=== PATIENT | female | born 1945 | race Caucasian/White ===

== ENCOUNTER 2021-10-12 08:57 | Inpatient (IN) ==
[2021-10-12 10:07] LABS: Basophils % 0.3 %; Eosinophils % 0.3 %; Hematocrit 31.1 % (35.3-44.9); Hemoglobin 10.6 g/dL (11.5-15.4); Immature Granulocytes % 0.4 % (0-4); Lymphocytes % 8.6 %; Mean Corpuscular HGB Conc 34.1 g/dL (31.6-35.5); Mean Corpuscular Hemoglobin 34.4 pg (28.0-33.3); Mean Platelet Volume 11.5 fL (9.4-12.4); Monocytes # 0.7 K/mcL (0.0-1.3); Monocytes % 5.6 %; Neutrophils # 9.9 K/mcL (1.6-8.9); Platelet Count 195 K/mcL (140-400); Red Blood Count 3.08 M/mcL (3.82-4.97); Red Cell Distribution Width 12.9 % (11.5-14.5); Segmented Neutrophils % 84.8 %; White Blood Count 11.7 K/mcL (4.3-11.1)
[2021-10-12 10:21] LABS: Alanine Aminotransferase 11 Units/L (7-52); Albumin 3.5 g/dL (3.5-5.7); Albumin/Globulin Ratio 1.2 (1.1-2.2); Alkaline Phosphatase 116 Units/L (34-104); Aspartate Amino Transferase 23 Units/L (13-39); BUN/Creatinine Ratio 17 (6-26); Blood Urea Nitrogen 10 mg/dL (8-23); Calcium 9.5 mg/dL (8.6-10.3); Carbon Dioxide 28 mEq/L (23-29); Chloride 99 mEq/L (98-107); Glucose 133 mg/dL (70-105); Osmolality,Calculated 285 (280-300); Potassium 3.6 mEq/L (3.5-5.1); Sodium 137 mEq/L (136-145); Total Protein 6.5 g/dL (6.4-8.9); eGFR For African Americans > 60 (> 60); eGFR For Non-African Americans > 60 (> 60)
[2021-10-12 10:29] LABS: Thyroid Stimulating Hormone 5.914 mcIU/mL (0.340-5.600)
[2021-10-12 10:30] LABS: Troponin I < 0.03 ng/mL (< 0.04)
[2021-10-12] MEDS ORDERED: *HR* Metoprolol 5 MG/5 ML VIAL IVP STA ×2 (11:30→16:08)
[2021-10-12] MEDS ORDERED: 0.9 % Sodium Chloride 500 ML IVC ONE (11:39)
[2021-10-12 12:31] LABS: INR 2.1; Prothrombin Time 22.8 Seconds (9.4-12.1)
[2021-10-12] MEDS ORDERED: Metoprolol XL (24 HR) Succ 50 MG TAB.ER.24H PO STA ×2 (16:10→22:52)
[2021-10-12 17:26] LABS: RBC,Pleural Fluid 1265000 RBC/mcL
[2021-10-12 17:32] LABS: Total Protein,Pleural Fluid 3.7 g/dL
[2021-10-12 17:33] LABS: Lactate Dehydrogenase 144 Units/L (140-271)
[2021-10-12] MEDS ORDERED: Mag Hydrox/Al Hydrox/Simeth 30 ML UDC PO PRN (17:56)
[2021-10-12] MEDS ORDERED: Ondansetron 4 MG/2 ML VIAL IVP PRN ×3 (17:56→22:52)
[2021-10-12] MEDS ORDERED: Acetaminophen 325 MG TABLET PO PRN (17:56)
[2021-10-12] MEDS ORDERED: Naloxone 0.4 MG/ML INJ IVP PRN ×2 (17:56→22:52)
[2021-10-12] MEDS ORDERED: Melatonin 3 MG TABLET PO PRN ×2 (17:56→22:52)
[2021-10-12 18:05] LABS: Appearance of Pleural Fl Bloody (Clear)
[2021-10-12] MEDS ORDERED: DilTIAZem 50 MG/50 ML IV.SOLN IVC SCH (18:15)
[2021-10-12] MEDS ORDERED: HUM PROTHROMBIN CPLX IVPB ONE (18:40)
[2021-10-12] MEDS ORDERED: WATER FOR INJ IVPB ONE (18:40)
[2021-10-12] MEDS ORDERED: [UNRECOGNIZED DRUG - OTHER] IVPB ONE (18:40)
[2021-10-12] MEDS ORDERED: *HR* Propofol 200 MG/20 ML VIAL IVP ONE (18:54)
[2021-10-12] MEDS ORDERED: Lidocaine -MPF 4% 5 ML AMPUL ONE (18:54)
[2021-10-12] MEDS ORDERED: Lidocaine -MPF 2% 5 ML VIAL ONE (18:54)
[2021-10-12] MEDS ORDERED: *HR* Rocuronium Bromide 50 MG/5 ML VIAL ONE (18:54)
[2021-10-12] MEDS ORDERED: Ondansetron 4 MG/2 ML VIAL ONE (18:54)
[2021-10-12] MEDS ORDERED: *HR* Succinylcholine 200 MG/10 ML VIAL IVP ONE (18:54)
[2021-10-12] MEDS ORDERED: *HR* FentaNYL (PF) 100 MCG/2 ML VIAL ONE (19:00)
[2021-10-12] MEDS ORDERED: Albumin Human 5% 12.5 GM/250 ML IV.SOLN ONE ×2 (19:04→21:32)
[2021-10-12 19:13] LABS: Basophils % 0.1 %; Eosinophils % 0.1 %; Hematocrit 32.1 % (35.3-44.9); Hemoglobin 11.2 g/dL (11.5-15.4); Immature Granulocytes % 0.5 % (0-4); Lymphocytes # 1.1 K/mcL (0.6-4.6); Lymphocytes % 10.2 %; Mean Corpuscular HGB Conc 34.9 g/dL (31.6-35.5); Mean Corpuscular Hemoglobin 35.4 pg (28.0-33.3); Mean Corpuscular Volume 101.6 fL (83.0-100.0); Mean Platelet Volume 11.3 fL (9.4-12.4); Monocytes # 0.7 K/mcL (0.0-1.3); Monocytes % 6.5 %; Neutrophils # 9.2 K/mcL (1.6-8.9); Platelet Count 230 K/mcL (140-400); Red Blood Count 3.16 M/mcL (3.82-4.97); Red Cell Distribution Width 13.2 % (11.5-14.5); Segmented Neutrophils % 82.6 %; White Blood Count 11.1 K/mcL (4.3-11.1)
[2021-10-12] MEDS ORDERED: *HR* HYDROmorphone PF 0.5 MG/0.5 ML SYRINGE IVP PRN (19:33)
[2021-10-12] MEDS ORDERED: *HR* FentaNYL (PF) 100 MCG/2 ML VIAL IVP PRN (19:33)
[2021-10-12] MEDS ORDERED: CeFAZolin Syr 2,000MG/20 ML 2,000 MG/20 ML SYRINGE IVPB ONE (19:34)
[2021-10-12] MEDS ORDERED: Lidocaine 1% 20 ML MDV ONE (19:47)
[2021-10-12] MEDS ORDERED: Metoprolol XL (24 HR) Succ 50 MG TAB.ER.24H PO SCH (21:00)
[2021-10-12] MEDS ORDERED: Metoprolol XL (24 HR) Succ 25 MG TAB.ER.24H PO SCH (21:00)
[2021-10-12] MEDS ORDERED: Albumin Human 5% 12.5 GM/250 ML IV.SOLN IVPB ONE (21:34)
[2021-10-12] MEDS ORDERED: Sugammadex Sodium 200 MG/2 ML VIAL IV ONE (21:41)
[2021-10-12] MEDS ORDERED: 0.9 % Sodium Chloride 1,000 ML IVC SCH (22:52)
[2021-10-12] MEDS: Gabapentin 300 MG CAPSULE PO SCH (23:19)
[2021-10-12] MEDS: Famotidine 20 MG TABLET PO SCH (23:20)
[2021-10-12] MEDS: Sennosides/Docusate Sodium TABLET PO SCH (23:21)
[2021-10-12] MEDS: DilTIAZem 50 MG/50 ML IV.SOLN IVC SCH (23:42)
[2021-10-12] MEDS: Ipratropium/Albuterol Neb 3 ML IH SCH (23:53)
[2021-10-13] MEDS: *HR* HYDROcodone/Acet 5/325 mg TABLET PO PRN ×2 (01:46→05:40)
[2021-10-13] MEDS: DilTIAZem 50 MG/50 ML IV.SOLN IVC SCH ×3 (02:34→10:46)
[2021-10-13] MEDS: Ipratropium/Albuterol Neb 3 ML IH SCH ×6 (03:59→23:56)
[2021-10-13 06:07] LABS: Hematocrit 29.6 % (35.3-44.9); Hemoglobin 9.7 g/dL (11.5-15.4); Mean Corpuscular HGB Conc 32.8 g/dL (31.6-35.5); Mean Corpuscular Hemoglobin 34.6 pg (28.0-33.3); Mean Corpuscular Volume 105.7 fL (83.0-100.0); Platelet Count 238 K/mcL (140-400); Red Cell Distribution Width 13.3 % (11.5-14.5); White Blood Count 16.6 K/mcL (4.3-11.1)
[2021-10-13 06:14] LABS: INR 1.9; Prothrombin Time 21.1 Seconds (9.4-12.1)
[2021-10-13 06:16] LABS: Activated Partial Thrombo Time 34.2 Seconds (26.0-36.0)
[2021-10-13 06:29] LABS: BUN/Creatinine Ratio 25 (6-26); Blood Urea Nitrogen 16 mg/dL (8-23); Carbon Dioxide 25 mEq/L (23-29); Chloride 104 mEq/L (98-107); Glucose 154 mg/dL (70-105); Osmolality,Calculated 294 (280-300); Potassium 3.5 mEq/L (3.5-5.1); Sodium 140 mEq/L (136-145); eGFR For African Americans > 60 (> 60); eGFR For Non-African Americans > 60 (> 60)
[2021-10-13] MEDS: Gabapentin 300 MG CAPSULE PO SCH ×3 (08:20→20:30)
[2021-10-13] MEDS: Famotidine 20 MG TABLET PO SCH ×2 (08:20→20:29)
[2021-10-13] MEDS: Sennosides/Docusate Sodium TABLET PO SCH ×2 (08:20→20:29)
[2021-10-13] MEDS: Metoprolol XL (24 HR) Succ 50 MG TAB.ER.24H PO SCH ×2 (08:22→20:22)
[2021-10-13] MEDS ORDERED: Furosemide 40 MG/4 ML VIAL IVP ONE (08:44)
[2021-10-13] MEDS ORDERED: niCARdipine 0 MG/0 ML MLS IVC ONE (10:05)
[2021-10-13] MEDS: DilTIAZem 125 MG in 0.9 % Sodium Chloride 50 MG/100 ML IV.SOLN IVC SCH ×2 (10:52→19:31)
[2021-10-13] MEDS: *HR* HYDROcodone/Acet 7.5/325 mg TABLET PO PRN (15:54)
[2021-10-13] MEDS: 0.9 % Sodium Chloride 1,000 ML IVC SCH (15:54)
[2021-10-13] MEDS: Albumin Human 5% 12.5 GM/250 ML IV.SOLN IVC SCH ×2 (15:56→20:16)
[2021-10-13 16:12] LABS: Hematocrit 29.5 % (35.3-44.9); Hemoglobin 9.8 g/dL (11.5-15.4); Immature Granulocytes % 0.8 % (0-4); Lymphocytes # 0.8 K/mcL (0.6-4.6); Lymphocytes % 3.6 %; Mean Corpuscular HGB Conc 33.2 g/dL (31.6-35.5); Mean Corpuscular Hemoglobin 34.4 pg (28.0-33.3); Mean Corpuscular Volume 103.5 fL (83.0-100.0); Mean Platelet Volume 10.8 fL (9.4-12.4); Monocytes # 1.1 K/mcL (0.0-1.3); Neutrophils # 19.9 K/mcL (1.6-8.9); Platelet Count 254 K/mcL (140-400); Red Blood Count 2.85 M/mcL (3.82-4.97); Red Cell Distribution Width 13.5 % (11.5-14.5); Segmented Neutrophils % 90.6 %
[2021-10-14] MEDS: Ipratropium/Albuterol Neb 3 ML IH SCH (04:22)
[2021-10-14 04:45] LABS: Basophils % 0.1 %; Hematocrit 25.2 % (35.3-44.9); Hemoglobin 8.3 g/dL (11.5-15.4); Immature Granulocytes % 0.6 % (0-4); Lymphocytes # 0.7 K/mcL (0.6-4.6); Lymphocytes % 3.4 %; Mean Corpuscular HGB Conc 32.9 g/dL (31.6-35.5); Mean Corpuscular Hemoglobin 34.2 pg (28.0-33.3); Mean Corpuscular Volume 103.7 fL (83.0-100.0); Mean Platelet Volume 11.1 fL (9.4-12.4); Monocytes # 1.2 K/mcL (0.0-1.3); Monocytes % 6.2 %; Neutrophils # 17.4 K/mcL (1.6-8.9); Platelet Count 204 K/mcL (140-400); Red Blood Count 2.43 M/mcL (3.82-4.97); Segmented Neutrophils % 89.7 %; White Blood Count 19.4 K/mcL (4.3-11.1)
[2021-10-14 04:53] LABS: BUN/Creatinine Ratio 30 (6-26); Blood Urea Nitrogen 28 mg/dL (8-23); Calcium 7.9 mg/dL (8.6-10.3); Carbon Dioxide 25 mEq/L (23-29); Chloride 101 mEq/L (98-107); Glucose 198 mg/dL (70-105); Osmolality,Calculated 289 (280-300); Potassium 3.4 mEq/L (3.5-5.1); Sodium 134 mEq/L (136-145); eGFR For African Americans > 60 (> 60); eGFR For Non-African Americans 58 (> 60)
[2021-10-14] MEDS: Levalbuterol Neb 1.25 MG/3 ML IH SCH ×5 (07:23→23:30)
[2021-10-14 08:38] LABS: Hemoglobin 9.6 g/dL (11.5-15.4)
[2021-10-14] MEDS: Famotidine 20 MG TABLET PO SCH ×2 (09:23→20:30)
[2021-10-14] MEDS: Sennosides/Docusate Sodium TABLET PO SCH ×2 (09:23→20:29)
[2021-10-14] MEDS: Metoprolol XL (24 HR) Succ 50 MG TAB.ER.24H PO SCH ×2 (09:23→20:31)
[2021-10-14] MEDS: Gabapentin 300 MG CAPSULE PO SCH ×3 (09:23→20:29)
[2021-10-14] MEDS: *HR* HYDROcodone/Acet 7.5/325 mg TABLET PO PRN ×2 (10:56→20:30)
[2021-10-14] MEDS: DilTIAZem 125 MG in 0.9 % Sodium Chloride 50 MG/100 ML IV.SOLN IVC SCH (11:59)
[2021-10-14] MEDS: 0.9 % Sodium Chloride 1,000 ML IVC SCH (12:01)
[2021-10-14] MEDS: Furosemide 20 MG/2 ML VIAL IVP SCH (20:29)
[2021-10-15 00:58] LABS: Fluid Source for Cholesterol PLEURAL FLUID
[2021-10-15] MEDS: Levalbuterol Neb 1.25 MG/3 ML IH SCH ×6 (04:02→23:42)
[2021-10-15 06:18] LABS: Basophils % 0.1 %; Eosinophils % 0.1 %; Hematocrit 26.8 % (35.3-44.9); Hemoglobin 8.8 g/dL (11.5-15.4); Immature Granulocytes % 0.9 % (0-4); Lymphocytes # 0.6 K/mcL (0.6-4.6); Lymphocytes % 3.6 %; Mean Corpuscular HGB Conc 32.8 g/dL (31.6-35.5); Mean Corpuscular Hemoglobin 34.4 pg (28.0-33.3); Mean Corpuscular Volume 104.7 fL (83.0-100.0); Mean Platelet Volume 10.9 fL (9.4-12.4); Monocytes # 0.6 K/mcL (0.0-1.3); Monocytes % 3.8 %; Neutrophils # 14.8 K/mcL (1.6-8.9); Platelet Count 205 K/mcL (140-400); Red Blood Count 2.56 M/mcL (3.82-4.97); Red Cell Distribution Width 14.2 % (11.5-14.5); Segmented Neutrophils % 91.5 %; White Blood Count 16.2 K/mcL (4.3-11.1)
[2021-10-15 06:32] LABS: BUN/Creatinine Ratio 39 (6-26); Blood Urea Nitrogen 37 mg/dL (8-23); Carbon Dioxide 23 mEq/L (23-29); Chloride 101 mEq/L (98-107); Glucose 156 mg/dL (70-105); Osmolality,Calculated 282 (280-300); Potassium 4.8 mEq/L (3.5-5.1); Sodium 130 mEq/L (136-145); eGFR For African Americans > 60 (> 60); eGFR For Non-African Americans 58 (> 60)
[2021-10-15] MEDS: Furosemide 20 MG/2 ML VIAL IVP SCH ×2 (08:13→21:04)
[2021-10-15] MEDS: Famotidine 20 MG TABLET PO SCH ×2 (08:14→21:04)
[2021-10-15] MEDS: Gabapentin 300 MG CAPSULE PO SCH ×3 (08:14→21:04)
[2021-10-15] MEDS: Metoprolol XL (24 HR) Succ 50 MG TAB.ER.24H PO SCH ×2 (08:14→21:05)
[2021-10-15] MEDS: Sennosides/Docusate Sodium TABLET PO SCH ×2 (08:14→21:05)
[2021-10-15] MEDS: DilTIAZem 125 MG in 0.9 % Sodium Chloride 50 MG/100 ML IV.SOLN IVC SCH (08:16)
[2021-10-15] MEDS: 0.9 % Sodium Chloride 1,000 ML IVC SCH (08:22)
[2021-10-15 10:11] LABS: Cholesterol,Body Fluid 58 mg/dL
[2021-10-15] MEDS: *HR* HYDROcodone/Acet 7.5/325 mg TABLET PO PRN (11:09)
[2021-10-16 02:32] LABS: Basophils % 0.1 %; Eosinophils % 0.1 %; Hematocrit 29.3 % (35.3-44.9); Hemoglobin 9.5 g/dL (11.5-15.4); Immature Granulocytes % 0.8 % (0-4); Lymphocytes # 0.5 K/mcL (0.6-4.6); Lymphocytes % 3.3 %; Mean Corpuscular HGB Conc 32.4 g/dL (31.6-35.5); Mean Corpuscular Hemoglobin 34.4 pg (28.0-33.3); Mean Corpuscular Volume 106.2 fL (83.0-100.0); Mean Platelet Volume 10.6 fL (9.4-12.4); Monocytes # 0.5 K/mcL (0.0-1.3); Monocytes % 3.5 %; Neutrophils # 13.8 K/mcL (1.6-8.9); Nucleated Red Blood Cells 0.1 /100 WBC (0); Platelet Count 229 K/mcL (140-400); Red Blood Count 2.76 M/mcL (3.82-4.97); Red Cell Distribution Width 14.2 % (11.5-14.5); Segmented Neutrophils % 92.2 %
[2021-10-16] MEDS: Levalbuterol Neb 1.25 MG/3 ML IH SCH ×7 (04:16→23:41)
[2021-10-16 05:23] LABS: BUN/Creatinine Ratio 42 (6-26); Blood Urea Nitrogen 32 mg/dL (8-23); Calcium 8.3 mg/dL (8.6-10.3); Carbon Dioxide 20 mEq/L (23-29); Chloride 102 mEq/L (98-107); Glucose 169 mg/dL (70-105); Osmolality,Calculated 283 (280-300); Potassium 4.9 mEq/L (3.5-5.1); Sodium 131 mEq/L (136-145); eGFR For African Americans > 60 (> 60); eGFR For Non-African Americans > 60 (> 60)
[2021-10-16] MEDS: 0.9 % Sodium Chloride 1,000 ML IVC SCH (06:04)
[2021-10-16] MEDS ORDERED: Furosemide 20 MG/2 ML VIAL IVP ONE (07:52)
[2021-10-16] MEDS ORDERED: Furosemide 40 MG/4 ML VIAL IVP ONE ×2 (07:54→14:16)
[2021-10-16 07:56] LABS: ABG Base Excess -2 mEq/L (-2 to 3); ABG HCO3 23 mEq/L (21-27); ABG Oxygen Saturation 89 % (95-98); ABG PCO2 37 mmHg (35-45); ABG PO2 55 mmHg (85-104); ABG TCO2 24 mEq/L (20-26)
[2021-10-16] MEDS: Furosemide 20 MG/2 ML VIAL IVP SCH ×2 (08:07→21:32)
[2021-10-16] MEDS: Metoprolol XL (24 HR) Succ 50 MG TAB.ER.24H PO SCH ×2 (08:08→20:39)
[2021-10-16] MEDS: Gabapentin 300 MG CAPSULE PO SCH ×3 (08:09→20:37)
[2021-10-16] MEDS: Famotidine 20 MG TABLET PO SCH ×2 (08:12→20:37)
[2021-10-16] MEDS: Sennosides/Docusate Sodium TABLET PO SCH ×2 (08:13→20:37)
[2021-10-16] MEDS ORDERED: Vancomycin (wt based) 1,000 MG VIAL IVPB SCH (09:00)
[2021-10-16] MEDS ORDERED: Vancomycin 1,500 MG/265 ML IV.SOLN IVPB SCH (09:00)
[2021-10-16] MEDS: Cefepime HCl 2,000 MG in 0.9 % Sodium Chloride 10 ML IVP SCH ×2 (09:46→16:19)
[2021-10-16 11:24] LABS: Adenovirus Not Detected (Not Detect); Bordetella Pertussis Not Detected (Not Detect); Chlamydophila pneumoniae Not Detected (Not Detect); Coronavirus 229E Not Detected (Not Detect); Coronavirus HKU1 Not Detected (Not Detect); Coronavirus NL63 Not Detected (Not Detect); Coronavirus OC43 Not Detected (Not Detect); Human Metapneumovirus Not Detected (Not Detect); Human Rhinovirus/Enterovirus Not Detected (Not Detect); Influenza A Subtype 2009 H1 Not Detected (Not Detect); Influenza B Not Detected (Not Detect); Mycoplasma pneumoniae Not Detected (Not Detect); Parainfluenza Virus 1 Not Detected (Not Detect); Parainfluenza Virus 2 Not Detected (Not Detect); Parainfluenza Virus 3 Not Detected (Not Detect); Parainfluenza Virus 4 Not Detected (Not Detect); Respiratory Syncytial Virus Not Detected (Not Detect); SARS-CoV-2 Not Detected (Not Detect)
[2021-10-16] MEDS ORDERED: Perflutren Lipid Microsphere 1.3 ML in 0.9 % Sodium Chloride 8.7 ML IVP PRN (11:34)
[2021-10-16] MEDS: methylPREDNISolone 125 MG/2 ML VIAL IVP SCH ×2 (12:15→15:39)
[2021-10-16] MEDS ORDERED: Isovue-370 500 ML BOTTLE IVP ONE (12:21)
[2021-10-16] MEDS ORDERED: *HR* LORazepam 2 MG/ML VIAL IVP ONE ×2 (12:33→15:17)
[2021-10-16] MEDS ORDERED: *HR* Heparin 5,000 UNIT/ML VIAL IVP PRN ×2 (13:52)
[2021-10-16] MEDS ORDERED: *HR* Heparin 5,000 UNIT/ML VIAL IVP ONE (13:52)
[2021-10-16 14:42] LABS: Heparin anti-factor XA UFH 0.17 IU/mL (0.30-0.70); INR 1.6; Prothrombin Time 17.4 Seconds (9.4-12.1)
[2021-10-16] MEDS ORDERED: Bumetanide 1 MG/4 ML VIAL IVP ONE (15:11)
[2021-10-16 15:17] LABS: ABG Base Excess -2 mEq/L (-2 to 3); ABG HCO3 23 mEq/L (21-27); ABG Oxygen Saturation 94 % (95-98); ABG PCO2 40 mmHg (35-45); ABG PH 7.37 pH Units (7.32-7.45); ABG PO2 73 mmHg (85-104); ABG TCO2 24 mEq/L (20-26)
[2021-10-16] MEDS: Heparin 25,000UNIT/250ML 1/2NS 25,000 UNIT/250 ML IV.SOLN IVC SCH (15:30)
[2021-10-16] MEDS ORDERED: Bumetanide 1 MG/4 ML VIAL IVP SCH (17:00)
[2021-10-16] MEDS ORDERED: *HR* Digoxin 0.5 MG/2 ML AMPUL IVP SCH (18:00)
[2021-10-17] MEDS: Cefepime HCl 2,000 MG in 0.9 % Sodium Chloride 10 ML IVP SCH ×3 (00:55→16:10)
[2021-10-17] MEDS: DilTIAZem 125 MG in 0.9 % Sodium Chloride 50 MG/100 ML IV.SOLN IVC SCH ×2 (02:54→16:09)
[2021-10-17] MEDS: Levalbuterol Neb 1.25 MG/3 ML IH SCH ×6 (04:07→23:56)
[2021-10-17 05:33] LABS: Basophils % 0.2 %; Eosinophils % 0.1 %; Hematocrit 29.1 % (35.3-44.9); Hemoglobin 9.6 g/dL (11.5-15.4); Immature Granulocytes % 0.8 % (0-4); Lymphocytes # 0.5 K/mcL (0.6-4.6); Lymphocytes % 2.5 %; Mean Corpuscular Hemoglobin 33.8 pg (28.0-33.3); Mean Corpuscular Volume 102.5 fL (83.0-100.0); Mean Platelet Volume 10.3 fL (9.4-12.4); Monocytes # 0.6 K/mcL (0.0-1.3); Monocytes % 3.4 %; Neutrophils # 16.8 K/mcL (1.6-8.9); Nucleated Red Blood Cells 0.1 /100 WBC (0); Platelet Count 251 K/mcL (140-400); Red Blood Count 2.84 M/mcL (3.82-4.97); Red Cell Distribution Width 13.9 % (11.5-14.5); White Blood Count 18.1 K/mcL (4.3-11.1)
[2021-10-17 05:51] LABS: BUN/Creatinine Ratio 43 (6-26); Blood Urea Nitrogen 25 mg/dL (8-23); Carbon Dioxide 27 mEq/L (23-29); Chloride 103 mEq/L (98-107); Glucose 187 mg/dL (70-105); Osmolality,Calculated 295 (280-300); Potassium 3.7 mEq/L (3.5-5.1); Sodium 138 mEq/L (136-145); eGFR For African Americans > 60 (> 60); eGFR For Non-African Americans > 60 (> 60)
[2021-10-17] MEDS: Furosemide 20 MG/2 ML VIAL IVP SCH ×2 (07:53→16:11)
[2021-10-17] MEDS: Metoprolol XL (24 HR) Succ 50 MG TAB.ER.24H PO SCH ×2 (07:54→08:02)
[2021-10-17] MEDS: Gabapentin 300 MG CAPSULE PO SCH ×3 (07:55→22:39)
[2021-10-17] MEDS: Sennosides/Docusate Sodium TABLET PO SCH ×2 (09:54→22:39)
[2021-10-17] MEDS: Aspirin 81 MG TAB.CHEW PO SCH (09:54)
[2021-10-17] MEDS: Famotidine 20 MG TABLET PO SCH ×2 (09:54→22:39)
[2021-10-17] MEDS: Heparin 25,000UNIT/250ML 1/2NS 25,000 UNIT/250 ML IV.SOLN IVC SCH (11:53)
[2021-10-17] MEDS ORDERED: Vancomycin 1,500 MG/265 ML IV.SOLN IVPB SCH (14:00)
[2021-10-17] MEDS ORDERED: Ketorolac 30 MG/ML VIAL IVP ONE (19:52)
[2021-10-18] MEDS: Cefepime HCl 2,000 MG in 0.9 % Sodium Chloride 10 ML IVP SCH ×2 (00:12→09:49)
[2021-10-18] MEDS: Levalbuterol Neb 1.25 MG/3 ML IH SCH ×5 (03:55→20:43)
[2021-10-18 04:14] LABS: Basophils # 0.1 K/mcL (0.0-0.2); Basophils % 0.2 %; Hematocrit 27.1 % (35.3-44.9); Hemoglobin 9.2 g/dL (11.5-15.4); Immature Granulocytes % 1.6 % (0-4); Lymphocytes # 0.7 K/mcL (0.6-4.6); Lymphocytes % 2.9 %; Mean Corpuscular HGB Conc 33.9 g/dL (31.6-35.5); Mean Corpuscular Hemoglobin 35.4 pg (28.0-33.3); Mean Corpuscular Volume 104.2 fL (83.0-100.0); Mean Platelet Volume 10.1 fL (9.4-12.4); Monocytes # 0.8 K/mcL (0.0-1.3); Monocytes % 3.5 %; Neutrophils # 21.3 K/mcL (1.6-8.9); Nucleated Red Blood Cells 0.2 /100 WBC (0); Platelet Count 280 K/mcL (140-400); Red Cell Distribution Width 14.1 % (11.5-14.5); Segmented Neutrophils % 91.8 %; White Blood Count 23.2 K/mcL (4.3-11.1)
[2021-10-18 04:33] LABS: BUN/Creatinine Ratio 61 (6-26); Blood Urea Nitrogen 37 mg/dL (8-23); Calcium 7.8 mg/dL (8.6-10.3); Carbon Dioxide 25 mEq/L (23-29); Chloride 107 mEq/L (98-107); Glucose 156 mg/dL (70-105); Osmolality,Calculated 304 (280-300); Potassium 3.9 mEq/L (3.5-5.1); Sodium 141 mEq/L (136-145); eGFR For African Americans > 60 (> 60); eGFR For Non-African Americans > 60 (> 60)
[2021-10-18] MEDS: Gabapentin 300 MG CAPSULE PO SCH ×3 (10:44→21:42)
[2021-10-18] MEDS: Famotidine 20 MG TABLET PO SCH ×2 (10:44→21:41)
[2021-10-18] MEDS: Aspirin 81 MG TAB.CHEW PO SCH (10:45)
[2021-10-18] MEDS: Sennosides/Docusate Sodium TABLET PO SCH ×2 (10:45→21:41)
[2021-10-18] MEDS: Metoprolol XL (24 HR) Succ 50 MG TAB.ER.24H PO SCH ×2 (10:45→21:42)
[2021-10-18] MEDS: Heparin 25,000UNIT/250ML 1/2NS 25,000 UNIT/250 ML IV.SOLN IVC SCH (12:11)
[2021-10-18] MEDS: Piperacillin/Tazobactam 3.375 GM in 0.9 % Sodium Chloride Mini Bag 100 ML IVPB SCH ×2 (15:37→23:21)
[2021-10-18] MEDS: Apixaban 5 MG TABLET PO SCH ×2 (15:37→21:41)
[2021-10-18] MEDS ORDERED: Ketorolac 30 MG/ML VIAL IVP ONE (19:41)
[2021-10-19] MEDS: Levalbuterol Neb 1.25 MG/3 ML IH SCH ×7 (00:06→23:38)
[2021-10-19 04:51] LABS: Basophils # 0.1 K/mcL (0.0-0.2); Basophils % 0.4 %; Eosinophils % 0.1 %; Hematocrit 26.6 % (35.3-44.9); Hemoglobin 8.8 g/dL (11.5-15.4); Immature Granulocytes % 4.6 % (0-4); Lymphocytes # 0.7 K/mcL (0.6-4.6); Lymphocytes % 4.1 %; Mean Corpuscular HGB Conc 33.1 g/dL (31.6-35.5); Mean Corpuscular Hemoglobin 34.8 pg (28.0-33.3); Mean Corpuscular Volume 105.1 fL (83.0-100.0); Monocytes # 0.7 K/mcL (0.0-1.3); Neutrophils # 14.7 K/mcL (1.6-8.9); Nucleated Red Blood Cells 0.3 /100 WBC (0); Platelet Count 260 K/mcL (140-400); Red Blood Count 2.53 M/mcL (3.82-4.97); Red Cell Distribution Width 14.6 % (11.5-14.5); Segmented Neutrophils % 86.8 %; White Blood Count 16.9 K/mcL (4.3-11.1)
[2021-10-19 05:28] LABS: BUN/Creatinine Ratio 53 (6-26); Blood Urea Nitrogen 35 mg/dL (8-23); Calcium 7.6 mg/dL (8.6-10.3); Carbon Dioxide 28 mEq/L (23-29); Chloride 105 mEq/L (98-107); Glucose 162 mg/dL (70-105); Osmolality,Calculated 302 (280-300); Potassium 3.6 mEq/L (3.5-5.1); Sodium 140 mEq/L (136-145); eGFR For African Americans > 60 (> 60); eGFR For Non-African Americans > 60 (> 60)
[2021-10-19] MEDS: Piperacillin/Tazobactam 3.375 GM in 0.9 % Sodium Chloride Mini Bag 100 ML IVPB SCH ×2 (08:06→15:44)
[2021-10-19] MEDS: Gabapentin 300 MG CAPSULE PO SCH ×3 (09:21→20:08)
[2021-10-19] MEDS: Famotidine 20 MG TABLET PO SCH ×2 (09:21→20:08)
[2021-10-19] MEDS: Sennosides/Docusate Sodium TABLET PO SCH ×2 (09:21→20:08)
[2021-10-19] MEDS: Metoprolol XL (24 HR) Succ 50 MG TAB.ER.24H PO SCH ×2 (09:21→20:08)
[2021-10-19] MEDS: Aspirin 81 MG TAB.CHEW PO SCH (09:21)
[2021-10-19] MEDS: Apixaban 5 MG TABLET PO SCH ×2 (09:21→20:08)
[2021-10-19] MEDS: Furosemide 40 MG/4 ML VIAL IVP SCH (09:22)
[2021-10-19] MEDS ORDERED: *HR* Metoprolol 5 MG/5 ML VIAL IVP ONE (12:13)
[2021-10-19 13:52] LABS: Bilirubin,Urine Negative (Negative); Blood,Urine Large (Negative); Clarity,Urine Clear (Clear); Color,Urine Colorless (Yellow); Glucose,Urine (UA) Normal (Normal); Hyaline Casts,Urine Few per lpf (None Seen); Ketones,Urine Negative (Negative); Leukocyte Esterase,Urine Small (Negative); Mucus,Urine Few per lpf (None-Few); Nitrite,Urine Negative (Negative); Protein,Urine Negative (Neg-Trace); RBC,Urine TNTC per hpf (0-3); Specific Gravity,Urine 1.012 (1.010-1.025); Urobilinogen,Urine Normal (Normal)
[2021-10-20] MEDS: Piperacillin/Tazobactam 3.375 GM in 0.9 % Sodium Chloride Mini Bag 100 ML IVPB SCH ×4 (01:12→23:53)
[2021-10-20] MEDS: Levalbuterol Neb 1.25 MG/3 ML IH SCH ×2 (04:07→07:45)
[2021-10-20] MEDS: *HR* Metoprolol 5 MG/5 ML VIAL IVP PRN ×2 (05:08→13:16)
[2021-10-20 05:26] LABS: Basophils # 0.1 K/mcL (0.0-0.2); Basophils % 0.5 %; Eosinophils # 0.2 K/mcL (0.0-0.6); Eosinophils % 1.1 %; Hematocrit 28.7 % (35.3-44.9); Hemoglobin 9.3 g/dL (11.5-15.4); Immature Granulocytes % 4.6 % (0-4); Lymphocytes # 0.9 K/mcL (0.6-4.6); Lymphocytes % 6.2 %; Mean Corpuscular HGB Conc 32.4 g/dL (31.6-35.5); Mean Corpuscular Hemoglobin 34.1 pg (28.0-33.3); Mean Corpuscular Volume 105.1 fL (83.0-100.0); Mean Platelet Volume 10.2 fL (9.4-12.4); Monocytes # 0.4 K/mcL (0.0-1.3); Monocytes % 2.6 %; Nucleated Red Blood Cells 0.4 /100 WBC (0); Platelet Count 264 K/mcL (140-400); Red Blood Count 2.73 M/mcL (3.82-4.97); Red Cell Distribution Width 14.6 % (11.5-14.5); White Blood Count 15.2 K/mcL (4.3-11.1)
[2021-10-20 05:32] LABS: BUN/Creatinine Ratio 46 (6-26); Blood Urea Nitrogen 25 mg/dL (8-23); Calcium 7.9 mg/dL (8.6-10.3); Carbon Dioxide 30 mEq/L (23-29); Chloride 106 mEq/L (98-107); Glucose 135 mg/dL (70-105); Magnesium 1.8 mg/dL (1.6-2.6); Osmolality,Calculated 300 (280-300); Phosphorous 1.5 mg/dL (2.7-4.5); Potassium 3.6 mEq/L (3.5-5.1); Sodium 142 mEq/L (136-145); eGFR For African Americans > 60 (> 60); eGFR For Non-African Americans > 60 (> 60)
[2021-10-20] MEDS ORDERED: Levalbuterol Neb 1.25 MG/3 ML IH PRN (09:00)
[2021-10-20] MEDS ORDERED: hydroCHLOROthiazide 25 MG TABLET PO SCH (09:00)
[2021-10-20] MEDS: Furosemide 40 MG/4 ML VIAL IVP SCH ×2 (09:01→16:58)
[2021-10-20] MEDS: Apixaban 5 MG TABLET PO SCH ×2 (09:03→21:24)
[2021-10-20] MEDS: Sennosides/Docusate Sodium TABLET PO SCH ×2 (09:03→21:24)
[2021-10-20] MEDS: Metoprolol XL (24 HR) Succ 50 MG TAB.ER.24H PO SCH ×2 (09:03→21:23)
[2021-10-20] MEDS: Gabapentin 300 MG CAPSULE PO SCH (09:03)
[2021-10-20] MEDS: Aspirin 81 MG TAB.CHEW PO SCH (09:04)
[2021-10-20] MEDS: lisinopriL 5 MG TABLET PO SCH (09:04)
[2021-10-20] MEDS: Famotidine 20 MG TABLET PO SCH ×2 (09:04→21:24)
[2021-10-20] MEDS ORDERED: Potassium Phosphate 44 MEQ in 0.9 % Sodium Chloride 250 ML IVPB ONE (09:29)
[2021-10-20] MEDS: DilTIAZem CD (24hr) 180 MG CAP.ER.24H PO SCH (09:37)
[2021-10-20] MEDS: Acetaminophen 325 MG TABLET PO PRN (10:56)
[2021-10-21 04:22] LABS: Basophils # 0.1 K/mcL (0.0-0.2); Basophils % 0.3 %; Eosinophils # 0.3 K/mcL (0.0-0.6); Eosinophils % 1.5 %; Hematocrit 30.8 % (35.3-44.9); Hemoglobin 10.1 g/dL (11.5-15.4); Immature Granulocytes % 3.1 % (0-4); Lymphocytes % 5.6 %; Mean Corpuscular HGB Conc 32.8 g/dL (31.6-35.5); Mean Corpuscular Hemoglobin 34.2 pg (28.0-33.3); Mean Corpuscular Volume 104.4 fL (83.0-100.0); Mean Platelet Volume 10.3 fL (9.4-12.4); Monocytes # 0.3 K/mcL (0.0-1.3); Monocytes % 1.4 %; Neutrophils # 16.3 K/mcL (1.6-8.9); Nucleated Red Blood Cells 0.2 /100 WBC (0); Platelet Count 259 K/mcL (140-400); Red Blood Count 2.95 M/mcL (3.82-4.97); Red Cell Distribution Width 14.2 % (11.5-14.5); Segmented Neutrophils % 88.1 %; White Blood Count 18.5 K/mcL (4.3-11.1)
[2021-10-21 04:39] LABS: BUN/Creatinine Ratio 31 (6-26); Blood Urea Nitrogen 17 mg/dL (8-23); Calcium 7.7 mg/dL (8.6-10.3); Carbon Dioxide 33 mEq/L (23-29); Chloride 101 mEq/L (98-107); Glucose 121 mg/dL (70-105); Magnesium 1.8 mg/dL (1.6-2.6); Osmolality,Calculated 293 (280-300); Phosphorous 1.8 mg/dL (2.7-4.5); Potassium 3.1 mEq/L (3.5-5.1); Sodium 140 mEq/L (136-145); eGFR For African Americans > 60 (> 60); eGFR For Non-African Americans > 60 (> 60)
[2021-10-21] MEDS ORDERED: Potassium Phosphate 44 MEQ in 0.9 % Sodium Chloride 250 ML IVPB ONE (05:14)
[2021-10-21] MEDS: Apixaban 5 MG TABLET PO SCH ×2 (09:28→20:01)
[2021-10-21] MEDS: Metoprolol XL (24 HR) Succ 50 MG TAB.ER.24H PO SCH ×2 (09:29→20:02)
[2021-10-21] MEDS: DilTIAZem CD (24hr) 180 MG CAP.ER.24H PO SCH (09:29)
[2021-10-21] MEDS: Sennosides/Docusate Sodium TABLET PO SCH ×2 (09:29→20:01)
[2021-10-21] MEDS: Aspirin 81 MG TAB.CHEW PO SCH (09:29)
[2021-10-21] MEDS: lisinopriL 5 MG TABLET PO SCH (09:29)
[2021-10-21] MEDS: Famotidine 20 MG TABLET PO SCH ×2 (09:29→20:02)
[2021-10-21] MEDS: Piperacillin/Tazobactam 3.375 GM in 0.9 % Sodium Chloride Mini Bag 100 ML IVPB SCH ×3 (09:30→23:19)
[2021-10-21] MEDS: Furosemide 40 MG/4 ML VIAL IVP SCH ×2 (09:30→16:26)
[2021-10-21] MEDS: Acetaminophen 325 MG TABLET PO PRN (09:33)
[2021-10-22 06:02] LABS: BUN/Creatinine Ratio 27 (6-26); Blood Urea Nitrogen 15 mg/dL (8-23); Calcium 7.4 mg/dL (8.6-10.3); Carbon Dioxide 34 mEq/L (23-29); Chloride 102 mEq/L (98-107); Glucose 123 mg/dL (70-105); Magnesium 1.8 mg/dL (1.6-2.6); Osmolality,Calculated 294 (280-300); Phosphorous 2.3 mg/dL (2.7-4.5); Potassium 2.9 mEq/L (3.5-5.1); Sodium 141 mEq/L (136-145); eGFR For African Americans > 60 (> 60); eGFR For Non-African Americans > 60 (> 60)
[2021-10-22 06:28] LABS: Basophils # 0.1 K/mcL (0.0-0.2); Basophils % 0.3 %; Eosinophils # 0.2 K/mcL (0.0-0.6); Eosinophils % 1.1 %; Hematocrit 28.7 % (35.3-44.9); Hemoglobin 9.7 g/dL (11.5-15.4); Immature Granulocytes % 2.3 % (0-4); Lymphocytes % 5.4 %; Mean Corpuscular HGB Conc 33.8 g/dL (31.6-35.5); Mean Corpuscular Hemoglobin 34.8 pg (28.0-33.3); Mean Corpuscular Volume 102.9 fL (83.0-100.0); Mean Platelet Volume 10.8 fL (9.4-12.4); Monocytes # 0.3 K/mcL (0.0-1.3); Monocytes % 1.6 %; Neutrophils # 15.8 K/mcL (1.6-8.9); Nucleated Red Blood Cells 0.1 /100 WBC (0); Platelet Count 260 K/mcL (140-400); Red Blood Count 2.79 M/mcL (3.82-4.97); Red Cell Distribution Width 14.1 % (11.5-14.5); Segmented Neutrophils % 89.3 %; White Blood Count 17.7 K/mcL (4.3-11.1)
[2021-10-22] MEDS ORDERED: Potassium Phosphate 44 MEQ in 0.9 % Sodium Chloride 250 ML IVPB ONE (07:22)
[2021-10-22] MEDS: Piperacillin/Tazobactam 3.375 GM in 0.9 % Sodium Chloride Mini Bag 100 ML IVPB SCH ×3 (09:37→23:20)
[2021-10-22] MEDS: Furosemide 40 MG/4 ML VIAL IVP SCH ×2 (09:38→16:32)
[2021-10-22] MEDS: Sennosides/Docusate Sodium TABLET PO SCH ×2 (09:41→20:29)
[2021-10-22] MEDS: Famotidine 20 MG TABLET PO SCH ×2 (09:41→20:29)
[2021-10-22] MEDS: Apixaban 5 MG TABLET PO SCH ×2 (09:42→20:28)
[2021-10-22] MEDS: DilTIAZem CD (24hr) 180 MG CAP.ER.24H PO SCH (09:42)
[2021-10-22] MEDS: Aspirin 81 MG TAB.CHEW PO SCH (09:42)
[2021-10-22] MEDS: lisinopriL 5 MG TABLET PO SCH (09:42)
[2021-10-22] MEDS: Metoprolol XL (24 HR) Succ 50 MG TAB.ER.24H PO SCH ×2 (09:42→20:29)
[2021-10-22] MEDS: *HR* HYDROcodone/Acet 7.5/325 mg TABLET PO PRN (23:21)
[2021-10-23] MEDS: Piperacillin/Tazobactam 3.375 GM in 0.9 % Sodium Chloride Mini Bag 100 ML IVPB SCH ×2 (08:28→15:55)
[2021-10-23] MEDS: DilTIAZem CD (24hr) 180 MG CAP.ER.24H PO SCH (08:30)
[2021-10-23] MEDS: Metoprolol XL (24 HR) Succ 50 MG TAB.ER.24H PO SCH ×2 (08:30→20:18)
[2021-10-23] MEDS: Famotidine 20 MG TABLET PO SCH ×2 (08:30→20:18)
[2021-10-23] MEDS: Sennosides/Docusate Sodium TABLET PO SCH ×2 (08:30→20:17)
[2021-10-23] MEDS: Aspirin 81 MG TAB.CHEW PO SCH (08:30)
[2021-10-23] MEDS: Apixaban 5 MG TABLET PO SCH (08:30)
[2021-10-23] MEDS: lisinopriL 5 MG TABLET PO SCH (08:30)
[2021-10-23] MEDS ORDERED: Potassium Phosphate 44 MEQ in 0.9 % Sodium Chloride 250 ML IVPB ONE (09:12)
[2021-10-23] MEDS: Furosemide 40 MG/4 ML VIAL IVP SCH (09:40)
[2021-10-23 10:05] LABS: Basophils % 0.2 %; Eosinophils # 0.3 K/mcL (0.0-0.6); Eosinophils % 1.6 %; Hematocrit 31.6 % (35.3-44.9); Hemoglobin 10.1 g/dL (11.5-15.4); Immature Granulocytes % 1.4 % (0-4); Mean Corpuscular Hemoglobin 33.8 pg (28.0-33.3); Mean Corpuscular Volume 105.7 fL (83.0-100.0); Mean Platelet Volume 10.5 fL (9.4-12.4); Monocytes # 0.4 K/mcL (0.0-1.3); Monocytes % 2.3 %; Neutrophils # 14.8 K/mcL (1.6-8.9); Platelet Count 320 K/mcL (140-400); Red Blood Count 2.99 M/mcL (3.82-4.97); Red Cell Distribution Width 14.7 % (11.5-14.5); Segmented Neutrophils % 88.5 %; White Blood Count 16.7 K/mcL (4.3-11.1)
[2021-10-23 10:52] LABS: BUN/Creatinine Ratio 18 (6-26); Blood Urea Nitrogen 12 mg/dL (8-23); Calcium 7.8 mg/dL (8.6-10.3); Carbon Dioxide 32 mEq/L (23-29); Chloride 101 mEq/L (98-107); Glucose 140 mg/dL (70-105); Osmolality,Calculated 288 (280-300); Potassium 3.9 mEq/L (3.5-5.1); Sodium 138 mEq/L (136-145); eGFR For African Americans > 60 (> 60); eGFR For Non-African Americans > 60 (> 60)
[2021-10-23 11:03] LABS: Phosphorous 2.3 mg/dL (2.7-4.5)
[2021-10-23] MEDS: *HR* HYDROcodone/Acet 7.5/325 mg TABLET PO PRN (17:38)
[2021-10-24 07:35] LABS: Basophils % 0.2 %; Eosinophils # 0.3 K/mcL (0.0-0.6); Hematocrit 31.2 % (35.3-44.9); Hemoglobin 9.9 g/dL (11.5-15.4); Immature Granulocytes % 0.9 % (0-4); Lymphocytes # 0.9 K/mcL (0.6-4.6); Lymphocytes % 6.9 %; Mean Corpuscular HGB Conc 31.7 g/dL (31.6-35.5); Mean Corpuscular Hemoglobin 34.5 pg (28.0-33.3); Mean Corpuscular Volume 108.7 fL (83.0-100.0); Mean Platelet Volume 11.2 fL (9.4-12.4); Monocytes # 0.5 K/mcL (0.0-1.3); Platelet Count 234 K/mcL (140-400); Red Blood Count 2.87 M/mcL (3.82-4.97); Red Cell Distribution Width 14.6 % (11.5-14.5); White Blood Count 12.9 K/mcL (4.3-11.1)
[2021-10-24] MEDS: Furosemide 40 MG TABLET PO SCH (08:18)
[2021-10-24] MEDS: Famotidine 20 MG TABLET PO SCH ×2 (08:18→21:10)
[2021-10-24] MEDS: DilTIAZem CD (24hr) 180 MG CAP.ER.24H PO SCH (08:18)
[2021-10-24] MEDS: Aspirin 81 MG TAB.CHEW PO SCH (08:19)
[2021-10-24] MEDS: Metoprolol XL (24 HR) Succ 50 MG TAB.ER.24H PO SCH ×2 (08:19→21:10)
[2021-10-24] MEDS: lisinopriL 5 MG TABLET PO SCH (08:19)
[2021-10-24] MEDS: Sennosides/Docusate Sodium TABLET PO SCH ×2 (08:19→21:10)
[2021-10-24 08:46] LABS: BUN/Creatinine Ratio 20 (6-26); Blood Urea Nitrogen 11 mg/dL (8-23); Calcium 7.9 mg/dL (8.6-10.3); Carbon Dioxide 25 mEq/L (23-29); Chloride 106 mEq/L (98-107); Glucose 102 mg/dL (70-105); Osmolality,Calculated 288 (280-300); Potassium 4.5 mEq/L (3.5-5.1); Sodium 139 mEq/L (136-145); eGFR For African Americans > 60 (> 60); eGFR For Non-African Americans > 60 (> 60)
[2021-10-24] MEDS: Apixaban 5 MG TABLET PO SCH (21:10)
[2021-10-24] MEDS: Potassium Chloride Elixir 20 MEQ/15 ML UDC PO SCH (21:10)
[2021-10-24] MEDS: *HR* HYDROcodone/Acet 7.5/325 mg TABLET PO PRN (21:10)
[2021-10-25] MEDS: Aspirin 81 MG TAB.CHEW PO SCH (08:34)
[2021-10-25] MEDS: Famotidine 20 MG TABLET PO SCH (08:34)
[2021-10-25] MEDS: Apixaban 5 MG TABLET PO SCH (08:34)
[2021-10-25] MEDS: lisinopriL 5 MG TABLET PO SCH (08:34)
[2021-10-25] MEDS: Metoprolol XL (24 HR) Succ 50 MG TAB.ER.24H PO SCH (08:34)
[2021-10-25] MEDS: Sennosides/Docusate Sodium TABLET PO SCH (08:34)
[2021-10-25] MEDS: Furosemide 40 MG TABLET PO SCH (08:34)
[2021-10-25] MEDS: DilTIAZem CD (24hr) 180 MG CAP.ER.24H PO SCH (08:34)
[2021-10-25] MEDS: Potassium Chloride Elixir 20 MEQ/15 ML UDC PO SCH (08:49)
[2021-10-25] MEDS ORDERED: *HR* HYDROcodone/Acet 5/325 mg TABLET PO PRN (09:26)
[2021-10-25 11:30] VITALS: O2SAT 97
[2021-10-25 15:53] LABS: Influenza A PCR Negative (Negative); Influenza B PCR Negative (Negative); Resp. Syncytial Virus PCR Negative (Negative)
[2021-10-25 15:55] LABS: SARS-CoV-2 by PCR (In House) Negative (Negative)
[2021-10-25 16:17] VITALS: BP 108/60; PULSE 82; TEMP 97.7
== END 2021-10-25 18:09 | DRG 163 ==
LOC: 2NENU 08:57 → EMEROOARM 08:57 → SUATTDRO 18:48 → 2NNU 19:22 → 3NENU 10-24 18:49
PROVIDERS: ADMIT Student in an Organized Health Care Education/Training Program; ATTEND Internal Medicine

== ENCOUNTER 2022-03-01 08:13 | Inpatient (IN) ==
[2022-03-01 08:49] LABS: Basophils % 0.2 %; Eosinophils # 0.1 K/mcL (0.0-0.6); Eosinophils % 0.5 %; Hemoglobin 11.9 g/dL (11.5-15.4); Immature Granulocytes % 0.4 % (0-4); Lymphocytes # 0.8 K/mcL (0.6-4.6); Lymphocytes % 7.6 %; Mean Corpuscular HGB Conc 33.1 g/dL (31.6-35.5); Mean Corpuscular Hemoglobin 32.4 pg (28.0-33.3); Mean Corpuscular Volume 98.1 fL (83.0-100.0); Mean Platelet Volume 10.5 fL (9.4-12.4); Monocytes # 0.7 K/mcL (0.0-1.3); Monocytes % 6.8 %; Neutrophils # 8.6 K/mcL (1.6-8.9); Platelet Count 260 K/mcL (140-400); Red Blood Count 3.67 M/mcL (3.82-4.97); Segmented Neutrophils % 84.5 %; White Blood Count 10.2 K/mcL (4.3-11.1)
[2022-03-01 09:10] LABS: BUN/Creatinine Ratio 20 (6-26); Blood Urea Nitrogen 12 mg/dL (8-23); Calcium 9.2 mg/dL (8.6-10.3); Carbon Dioxide 28 mEq/L (23-29); Chloride 91 mEq/L (98-107); Glucose 122 mg/dL (70-105); Osmolality,Calculated 263 (280-300); Potassium 4.1 mEq/L (3.5-5.1); Sodium 126 mEq/L (136-145)
[2022-03-01 09:11] LABS: Troponin I < 0.03 ng/mL (< 0.04)
[2022-03-01] MEDS ORDERED: Nitroglycerin 0.4 MG TAB.SUBL SL STA (09:58)
[2022-03-01] MEDS ORDERED: Furosemide 40 MG/4 ML VIAL IVP ONE (10:00)
[2022-03-01] MEDS ORDERED: Naloxone 0.4 MG/ML INJ IVP PRN (11:03)
[2022-03-01] MEDS: Piperacillin/Tazobactam 3.375 GM in 0.9 % Sodium Chloride Mini Bag 100 ML IVPB SCH ×2 (13:04→18:12)
[2022-03-01] MEDS ORDERED: Artificial Tears SOLN 15 ML BOTTLE BOTH EYES PRN (17:50)
[2022-03-01] MEDS ORDERED: Ipratropium/Albuterol Neb 3 ML IH PRN (17:50)
[2022-03-01] MEDS: Metoprolol XL (24 HR) Succ 50 MG TAB.ER.24H PO SCH (20:31)
[2022-03-01] MEDS: Apixaban 5 MG TABLET PO SCH (20:33)
[2022-03-01] MEDS ORDERED: Cholecalciferol (D-3) 1,000 UNIT (25MCG) TABLET PO SCH (21:15)
[2022-03-01] MEDS ORDERED: Ascorbic Acid 500 MG TABLET PO SCH (21:15)
[2022-03-02 02:16] LABS: Basophils % 0.2 %; Eosinophils # 0.1 K/mcL (0.0-0.6); Eosinophils % 0.6 %; Hematocrit 30.8 % (35.3-44.9); Immature Granulocytes % 0.4 % (0-4); Lymphocytes # 0.8 K/mcL (0.6-4.6); Lymphocytes % 7.8 %; Mean Corpuscular HGB Conc 32.5 g/dL (31.6-35.5); Mean Corpuscular Hemoglobin 32.1 pg (28.0-33.3); Mean Corpuscular Volume 98.7 fL (83.0-100.0); Mean Platelet Volume 10.7 fL (9.4-12.4); Monocytes # 1.2 K/mcL (0.0-1.3); Monocytes % 11.8 %; Neutrophils # 8.3 K/mcL (1.6-8.9); Platelet Count 204 K/mcL (140-400); Red Blood Count 3.12 M/mcL (3.82-4.97); Red Cell Distribution Width 15.2 % (11.5-14.5); Segmented Neutrophils % 79.2 %; White Blood Count 10.4 K/mcL (4.3-11.1)
[2022-03-02 02:36] LABS: BUN/Creatinine Ratio 22 (6-26); Blood Urea Nitrogen 11 mg/dL (8-23); Calcium 8.5 mg/dL (8.6-10.3); Carbon Dioxide 29 mEq/L (23-29); Chloride 95 mEq/L (98-107); Glucose 128 mg/dL (70-105); Osmolality,Calculated 273 (280-300); Potassium 3.3 mEq/L (3.5-5.1); Sodium 131 mEq/L (136-145)
[2022-03-02] MEDS: Piperacillin/Tazobactam 3.375 GM in 0.9 % Sodium Chloride Mini Bag 100 ML IVPB SCH (04:58)
[2022-03-02] MEDS: Cholecalciferol (D-3) 1,000 UNIT (25MCG) TABLET PO SCH (08:12)
[2022-03-02] MEDS: Metoprolol XL (24 HR) Succ 50 MG TAB.ER.24H PO SCH ×2 (08:12→20:24)
[2022-03-02] MEDS: DilTIAZem CD (24hr) 180 MG CAP.ER.24H PO SCH (08:12)
[2022-03-02] MEDS: lisinopriL 5 MG TABLET PO SCH (08:12)
[2022-03-02] MEDS: Aspirin 81 MG TAB.CHEW PO SCH (08:12)
[2022-03-02] MEDS: Apixaban 5 MG TABLET PO SCH ×2 (08:13→20:24)
[2022-03-02] MEDS: Furosemide 40 MG/4 ML VIAL IVP SCH (08:39)
[2022-03-02] MEDS ORDERED: Cholecalciferol (D-3) 1,000 UNIT (25MCG) TABLET PO SCH ×2 (09:00)
[2022-03-02] MEDS ORDERED: Ascorbic Acid 500 MG TABLET PO SCH (09:00)
[2022-03-02] MEDS: Acetaminophen 325 MG TABLET PO PRN (20:24)
[2022-03-02] MEDS: Ascorbic Acid 500 MG TABLET PO SCH (20:25)
[2022-03-03 05:30] LABS: BUN/Creatinine Ratio 23 (6-26); Blood Urea Nitrogen 12 mg/dL (8-23); Calcium 8.6 mg/dL (8.6-10.3); Carbon Dioxide 29 mEq/L (23-29); Chloride 99 mEq/L (98-107); Glucose 102 mg/dL (70-105); Magnesium 1.7 mg/dL (1.6-2.6); Osmolality,Calculated 274 (280-300); Potassium 4.3 mEq/L (3.5-5.1); Sodium 132 mEq/L (136-145)
[2022-03-03] MEDS: Aspirin 81 MG TAB.CHEW PO SCH (08:07)
[2022-03-03] MEDS: DilTIAZem CD (24hr) 180 MG CAP.ER.24H PO SCH (08:07)
[2022-03-03] MEDS: Cholecalciferol (D-3) 1,000 UNIT (25MCG) TABLET PO SCH (08:07)
[2022-03-03] MEDS: Metoprolol XL (24 HR) Succ 50 MG TAB.ER.24H PO SCH ×2 (08:07→20:34)
[2022-03-03] MEDS: Furosemide 40 MG/4 ML VIAL IVP SCH (08:08)
[2022-03-03] MEDS: lisinopriL 5 MG TABLET PO SCH (08:08)
[2022-03-03] MEDS: Apixaban 5 MG TABLET PO SCH ×2 (08:08→20:34)
[2022-03-03 10:49] LABS: Adenovirus Not Detected (Not Detect); Bordetella Pertussis Not Detected (Not Detect); Chlamydophila pneumoniae Not Detected (Not Detect); Coronavirus 229E Not Detected (Not Detect); Coronavirus HKU1 Not Detected (Not Detect); Coronavirus NL63 Not Detected (Not Detect); Coronavirus OC43 Not Detected (Not Detect); Human Metapneumovirus Not Detected (Not Detect); Human Rhinovirus/Enterovirus Not Detected (Not Detect); Influenza A Subtype 2009 H1 Not Detected (Not Detect); Influenza B Not Detected (Not Detect); Mycoplasma pneumoniae Not Detected (Not Detect); Parainfluenza Virus 1 Not Detected (Not Detect); Parainfluenza Virus 2 Not Detected (Not Detect); Parainfluenza Virus 3 Not Detected (Not Detect); Parainfluenza Virus 4 Not Detected (Not Detect); Respiratory Syncytial Virus Not Detected (Not Detect); SARS-CoV-2 Not Detected (Not Detect)
[2022-03-03] MEDS: Acetaminophen 325 MG TABLET PO PRN (15:31)
[2022-03-03] MEDS: Loratadine 10 MG TABLET PO PRN (20:33)
[2022-03-03] MEDS: Ascorbic Acid 500 MG TABLET PO SCH (20:34)
[2022-03-04] MEDS: Acetaminophen 325 MG TABLET PO PRN ×3 (04:51→22:40)
[2022-03-04] MEDS: DilTIAZem CD (24hr) 180 MG CAP.ER.24H PO SCH (08:02)
[2022-03-04] MEDS: Metoprolol XL (24 HR) Succ 50 MG TAB.ER.24H PO SCH ×2 (08:02→21:02)
[2022-03-04] MEDS: Furosemide 40 MG/4 ML VIAL IVP SCH (08:02)
[2022-03-04] MEDS: Cholecalciferol (D-3) 1,000 UNIT (25MCG) TABLET PO SCH (08:02)
[2022-03-04] MEDS: lisinopriL 5 MG TABLET PO SCH (08:02)
[2022-03-04] MEDS: Aspirin 81 MG TAB.CHEW PO SCH (08:02)
[2022-03-04] MEDS: Apixaban 5 MG TABLET PO SCH ×2 (08:02→21:02)
[2022-03-04] MEDS: Loratadine 10 MG TABLET PO PRN (15:09)
[2022-03-04] MEDS: Ascorbic Acid 500 MG TABLET PO SCH (21:03)
[2022-03-05 03:46] LABS: BUN/Creatinine Ratio 24 (6-26); Blood Urea Nitrogen 13 mg/dL (8-23); Calcium 8.5 mg/dL (8.6-10.3); Carbon Dioxide 31 mEq/L (23-29); Chloride 97 mEq/L (98-107); Glucose 101 mg/dL (70-105); Magnesium 1.8 mg/dL (1.6-2.6); Osmolality,Calculated 278 (280-300); Potassium 4.2 mEq/L (3.5-5.1); Sodium 134 mEq/L (136-145)
[2022-03-05] MEDS: Loratadine 10 MG TABLET PO PRN (04:00)
[2022-03-05] MEDS: lisinopriL 5 MG TABLET PO SCH (09:12)
[2022-03-05] MEDS: Metoprolol XL (24 HR) Succ 50 MG TAB.ER.24H PO SCH (09:12)
[2022-03-05] MEDS: Cholecalciferol (D-3) 1,000 UNIT (25MCG) TABLET PO SCH (09:13)
[2022-03-05] MEDS: DilTIAZem CD (24hr) 180 MG CAP.ER.24H PO SCH (09:13)
[2022-03-05] MEDS: Aspirin 81 MG TAB.CHEW PO SCH (09:13)
[2022-03-05] MEDS: Apixaban 5 MG TABLET PO SCH (09:13)
[2022-03-05] MEDS: Furosemide 40 MG/4 ML VIAL IVP SCH (09:14)
[2022-03-05 16:11] VITALS: BP 123/61; PULSE 82; TEMP 99.3; O2SAT 99
== END 2022-03-05 18:21 | disposition home health service (06) | DRG 291 ==
LOC: 3ANU 08:13 → EMEROOARM 08:13 → SUATTDRO 12:27 → 3ANU 13:36
PROVIDERS: ADMIT Internal Medicine; ATTEND Family Medicine